=== PATIENT | female | born 1975 | race Asian ===

== ENCOUNTER 2019-02-28 00:01 | Emergency (ER) | payer OTHER ==
--- NOTE | 2019-02-28 00:25 | EDPHY ---
H & P Stated Complaint: c/o stomach pain, swelling, difficulty swallowing- "gets stuck " Time Seen by Provider: 02/28/19 00:15 HPI/ROS: Chief Complaint: Abdominal distension HPI: 43-year-old woman with a history of bowel obstruction in the past which required surgical intervention in 2016 secondary to scar tissue from prior surgery. Patient has been having increasing abdominal distension with discomfort for the last 6 hr. Some nausea no vomiting. She is not passing gas. No stool or. Does have a history of constipation the past but this does not feel the same. This feels like her prior obstruction. Pain is minimal but she does feel uncomfortable. No fevers or chills. No recent illness. ROS: 10 systems were reviewed and were negative except those elements noted in the HPI. PMH: Small-bowel obstruction Social History: No smoking, no alcohol, no recreational drug use Family History: non-contributory Physical Exam: Gen: Awake, Alert, No Distress HEENT: Nose: no rhinorrhea Eyes: PERRLA, EOMI Mouth: Moist mucosa Neck: Supple, no JVD Chest: nontender, lungs clear to auscultation Heart: S1, S2 normal, no murmur Abd: Distended, decreased bowel sounds, tympanitic Back: no CVA tenderness, no midline tenderness Ext: no edema, non-tender Skin: no rash Neuro: CN II-XII intact, Sensation grossly intact, Strength 5/5 in bilateral upper and lower extremities - Personal History Current Tetanus Diphtheria and Acellular Pertussis (TDAP): Unsure - Medical/Surgical History Hx Asthma: No Hx Chronic Respiratory Disease: No Hx Diabetes: No Hx Cardiac Disease: No Hx Renal Disease: No Hx Cirrhosis: No Hx Alcoholism: No Hx HIV/AIDS: No Hx Splenectomy or Spleen Trauma: No Other PMH: tubal ligation 2013, 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, cochlear implants 2004 - Social History Smoking Status: Never smoked Constitutional: Initial Vital Signs Temperature (C) 36.9 C 02/28/19 00:05 Heart Rate 64 02/28/19 00:05 Respiratory Rate 16 02/28/19 00:05 Blood Pressure 128/62 H 02/28/19 00:05 O2 Sat (%) 100 02/28/19 00:05 O2 Delivery Mode Room Air Allergies/Adverse Reactions: No Known Allergies Allergy (Verified 08/03/17 19:43) Home Medications: Medication Instructions Recorded Lasix 02/28/19 Medical Decision Making - Diagnostics Imaging Results: EXAM: CT Abdomen and Pelvis with Intravenous Contrast CLINICAL HISTORY: Abd pain/distention, hx obstruction with resection TECHNIQUE: Axial computed tomography images of the abdomen and pelvis with intravenous contrast. CONTRAST: With; 75mL/isovue 300 COMPARISON: None provided. FINDINGS: LUNG BASES: No basilar airspace consolidation or pleural effusion. LIVER: Unremarkable. GALLBLADDER AND BILE DUCTS: Unremarkable. No calcified stone. No ductal dilation. PANCREAS: Unremarkable. SPLEEN: Unremarkable. ADRENAL GLANDS: Unremarkable. KIDNEYS, URETERS, AND BLADDER: Unremarkable. No hydronephrosis or nephrolithiasis. No ureteral or bladder calculi. STOMACH AND BOWEL: Tortuous redundant dilated colon, 9 cm, with a large volume of retained stool. No mechanical obstruction or perforation. Nondilated small bowel with fecal like material consistent with significant stasis likely related to constipation/obstipation. APPENDIX: No CT evidence for appendicitis. PERITONEUM: No free fluid. No free air. LYMPH NODES: No lymphadenopathy. REPRODUCTIVE: 6.7 cm solid heterogeneous mass in the pelvis to the right of midline, possibly pedunculated leiomyoma or ovarian mass. Small volume of adjacent fluid. VASCULATURE: No aortic aneurysm. BONES: No fracture or suspicious osseous abnormality. ABDOMINAL WALL AND SOFT TISSUES: Unremarkable. IMPRESSION: 1. Tortuous redundant dilated colon, 9 cm, with a large volume of retained stool. No mechanical obstruction or perforation. Nondilated small bowel with fecal like material consistent with significant stasis likely related to constipation/obstipation. 2. 6.7 cm solid heterogeneous mass in the pelvis to the right of midline, possibly pedunculated leiomyoma or ovarian mass. Small volume of adjacent fluid. ELECTRONICALLY SIGNED BY: Luis Ledesma MD Feb 28, 2019 1:22:22 AM MDT ED Course/Re-evaluation: 43-year-old woman presenting with obstipation. She has not have any pain. She does feel better after passing flatus here. No evidence of acute obstruction otherwise on her CT scan. I have offered her an enema which she would prefer to attempt at home. I have cautioned her to return for any worsening symptoms. Will given her my customary constipation instructions. She will need to follow up with computer systems consultant. - Data Points Laboratory Results: Laboratory Results 02/28/19 00:25 02/28/19 00:25 02/28/19 02/28/19 02/28/19 00:34 00:25 00:25 WBC 4.12 10^3/uL 10^3/uL (3.80-9.50) RBC 4.17 10^6/uL L 10^6/uL (4.18-5.33) Hgb 14.0 g/dL g/dL (12.6-16.3) POC Hgb 14.3 gm/dL gm/dL (12.6-16.3) Hct 41.4 % % (38.0-47.0) POC Hct 42 % % (38-47) MCV 99.3 fL fL (81.5-99.8) MCH 33.6 pg pg (27.9-34.1) MCHC 33.8 g/dL g/dL (32.4-36.7) RDW 12.4 % % (11.5-15.2) Plt Count 179 10^3/uL 10^3/uL (150-400) MPV 10.1 fL fL (8.7-11.7) Neut % (Auto) 45.2 % % (39.3-74.2) Lymph % (Auto) 43.9 % % (15.0-45.0) Ritchie % (Auto) 9.5 % % (4.5-13.0) Eos % (Auto) 0.7 % % (0.6-7.6) Baso % (Auto) 0.5 % % (0.3-1.7) Nucleat RBC Rel Count 0.0 % % (0.0-0.2) Absolute Neuts (auto) 1.86 10^3/uL 10^3/uL (1.70-6.50) Absolute Lymphs (auto) 1.81 10^3/uL 10^3/uL (1.00-3.00) Absolute Monos (auto) 0.39 10^3/uL 10^3/uL (0.30-0.80) Absolute Eos (auto) 0.03 10^3/uL 10^3/uL (0.03-0.40) Absolute Basos (auto) 0.02 10^3/uL 10^3/uL (0.02-0.10) Absolute Nucleated RBC 0.00 10^3/uL 10^3/uL (0-0.01) Immature Gran % 0.2 % % (0.0-1.1) Immature Gran # 0.01 10^3/uL 10^3/uL (0.00-0.10) POC Sodium 141 mEq/L mEq/L (135-145) Sodium 139 mEq/L mEq/L (135-145) POC Potassium 3.7 mEq/L mEq/L (3.3-5.0) Potassium 3.9 mEq/L mEq/L (3.5-5.2) POC Chloride 106 mEq/L mEq/L (97-110) Chloride 106 mEq/L mEq/L (97-110) Carbon Dioxide 23 mEq/l mEq/l (22-31) POC Total CO2 23 mEq/L mEq/L (22-31) Anion Gap 10 mEq/L mEq/L (6-14) POC BUN 9 mg/dL mg/dL (7-23) BUN 11 mg/dL mg/dL (7-23) Creatinine 0.6 mg/dL mg/dL (0.6-1.0) POC Creatinine 0.6 mg/dL mg/dL (0.6-1.0) Estimated GFR > 60 Glucose 95 mg/dL mg/dL (70-100) POC Glucose 93 mg/dL mg/dL (70-100) Calcium 9.5 mg/dL mg/dL (8.5-10.4) Point of Care Test Results: Chemistry 02/28/19 00:34 POC Sodium 141 mEq/L mEq/L (135-145) POC Potassium 3.7 mEq/L mEq/L (3.3-5.0) POC Chloride 106 mEq/L mEq/L (97-110) POC Total CO2 23 mEq/L mEq/L (22-31) POC BUN 9 mg/dL mg/dL (7-23) POC Creatinine 0.6 mg/dL mg/dL (0.6-1.0) POC Glucose 93 mg/dL mg/dL (70-100) ISTAT H&H 02/28/19 00:34 POC Hgb 14.3 gm/dL gm/dL (12.6-16.3) POC Hct 42 % % (38-47) Departure - Departure Disposition: Home, Routine, Self-Care Clinical Impression: Constipation Condition: Good Instructions: Constipation (ED), Fleet Enema (ED) Additional Instructions: Increase the fiber in your diet, either through increasing high-fiber fruits and vegetables or adding a fiber supplement like Metamucil. Make sure to drink plenty of water every day. You may take MiraLax daily according to package instructions. If you feel constipated drink 1/2 bottle of magnesium citrate. Wait 1-2 hours. If you do not have a bowel movement after that time drink the 2nd half of the bottle. If you continues to be constipated you may use a Fleet's enema, available over- the-counter. Referrals: Lincoln Zamorano MD [Medical Doctor] - As per Instructions
[2019-02-28] MEDS ORDERED: IOPAMIDOL (ISOVUE-300) 100 ML BTL ONE (00:38)
[2019-02-28 00:55] LABS: PLATELET COUNT 179 10^3/uL (150-400)
[2019-02-28 02:18] VITALS: BP 112/63
== END 2019-02-28 02:45 | disposition home or self-care (01) ==
DX: K59.00 Constipation, unspecified (principal); Z87.19 Personal history of other diseases of the digestive system; Z90.49 Acquired absence of other specified parts of digestive tract
CPT/HCPCS: 82435-PO; 82565-PO; 82947-PO; 84132-PO; 84295-PO; 84520-PO; 85014-ER; Q9967